=== PATIENT | male | born 1990 | race Caucasian/White ===

== ENCOUNTER 2017-09-07 15:48 | Inpatient (IN) | payer SELFPAY ==
[2017-09-07] MEDS: REMOVE OLD PATCH T-DERMAL (18:23)
[2017-09-07] MEDS ORDERED: diphenhydrAMINE HCL 50 MG/ML VIAL IM (18:30)
[2017-09-07] MEDS ORDERED: diphenhydrAMINE HCL 50 MG CAP - HS PRN PO (18:30)
[2017-09-07] MEDS ORDERED: MAGNESIUM HYDROXIDE SUSP 30 ML CUP PO (18:30)
[2017-09-07] MEDS ORDERED: diphenhydrAMINE HCL 50 MG CAP PO (18:30)
[2017-09-07] MEDS: NEOMYCIN/POLYMYXIN/BACITRACIN OINT 15 GM TUBE TOPICAL (20:24)
[2017-09-07] MEDS: ACETAMINOPHEN 325 MG TAB PO (22:42)
[2017-09-07] MEDS: hydrOXYzine HCL 50 MG TAB PO (22:42)
[2017-09-08] MEDS: NICOTINE 21 MG/24 HR PATCH T-DERMAL (09:00)
[2017-09-08] MEDS: REMOVE OLD PATCH T-DERMAL (09:00)
[2017-09-08] MEDS: ACETAMINOPHEN 325 MG TAB PO (09:34)
[2017-09-08] MEDS: hydrOXYzine HCL 50 MG TAB PO (09:34)
[2017-09-08 10:09] LABS: AUTOMATED NEUTROPHIL # 5.4 TH/MM3 (1.8-7.7); BASOPHIL # 0.1 TH/MM3 (0-0.2); BASOPHIL % 1.1 % (0.0-2.0); EOSINOPHIL # 0.3 TH/MM3 (0-0.4); HEMATOCRIT 42.8 % (39.0-51.0); HEMO FLAGS DIFF FINAL; HEMOGLOBIN 14.1 GM/DL (13.0-17.0); LYMPH % 16.4 % (9.0-44.0); LYMPHOCYTE # 1.3 TH/MM3 (1.0-4.8); MEAN CELL VOLUME 90.8 FL (80.0-100.0); MEAN PLATELET VOLUME 6.8 FL (7.0-11.0); MONO % 9.8 % (0.0-8.0); MONOCYTE # 0.8 TH/MM3 (0-0.9); NEUT % 68.7 % (16.0-70.0); PLATELET COUNT 363 TH/MM3 (150-450); RED BLOOD COUNT 4.71 MIL/MM3 (4.50-5.90); RED CELL DISTRIBUTION WIDTH 14.4 % (11.6-17.2); WHITE BLOOD COUNT 7.8 TH/MM3 (4.0-11.0)
[2017-09-08 10:31] LABS: ALBUMIN 4.2 GM/DL (3.4-5.0); ANION GAP 10 MEQ/L (5-15); AST (GOT) 119 U/L (15-37); BLOOD UREA NITROGEN 16 MG/DL (7-18); CALCIUM 9.5 MG/DL (8.5-10.1); CHLORIDE 101 MEQ/L (98-107); CREATININE 0.86 MG/DL (0.60-1.30); GLOMERULAR FILTRATION RATE 107 ML/MIN (>89); GLUCOSE,RANDOM 93 MG/DL (74-106); POTASSIUM 3.9 MEQ/L (3.5-5.1); SODIUM (NA) 140 MEQ/L (136-145)
[2017-09-08 10:32] LABS: ALT (GPT) 117 U/L (12-78); CHOLESTEROL 230 MG/DL (120-200); TRIGLYCERIDES 219 MG/DL (42-150)
[2017-09-08 10:42] LABS: ALKALINE PHOSPHATASE 122 U/L (45-117); CHOLESTEROL/ HDL RATIO 3.06 RATIO; CREATINE KINASE 109 U/L (39-308); LDL CHOLESTEROL 111 MG/DL (0-99); TOTAL BILIRUBIN ADULT 0.2 MG/DL (0.2-1.0); TOTAL PROTEIN 8.7 GM/DL (6.4-8.2)
[2017-09-08] MEDS: NEOMYCIN/POLYMYXIN/BACITRACIN OINT 15 GM TUBE TOPICAL ×2 (12:16→21:00)
[2017-09-08 12:19] LABS: HEMOGLOBIN A1C 4.9 % (4.3-6.0); HEMOGLOBIN A1a 0.6 %; HEMOGLOBIN A1b 1.7 %; HEMOGLOBIN Ao 86.1 %; HEMOGLOBIN P3 3.9 %
[2017-09-08] MEDS: OXcarbazepine 600 MG TAB PO ×3 (16:48→23:29)
[2017-09-08] MEDS: GABAPENTIN 300 MG CAP PO (16:48)
[2017-09-08] MEDS: QUEtiapine FUMARATE 200 MG TAB PO ×2 (16:50→20:32)
[2017-09-09] MEDS: OXcarbazepine 600 MG TAB PO ×4 (06:16→23:38)
[2017-09-09] MEDS: QUEtiapine FUMARATE 200 MG TAB PO ×3 (06:16→20:35)
[2017-09-09] MEDS: NICOTINE 21 MG/24 HR PATCH T-DERMAL (09:00)
[2017-09-09] MEDS: REMOVE OLD PATCH T-DERMAL (09:00)
[2017-09-09] MEDS: NEOMYCIN/POLYMYXIN/BACITRACIN OINT 15 GM TUBE TOPICAL ×2 (09:00→21:00)
[2017-09-09] MEDS: GABAPENTIN 300 MG CAP PO ×4 (09:45→17:34)
[2017-09-09 13:19] LABS: ALBUMIN 4.1 GM/DL (3.4-5.0); ALT (GPT) 131 U/L (12-78); ANION GAP 6 MEQ/L (5-15); AST (GOT) 92 U/L (15-37); BICARBONATE 28.8 MEQ/L (21.0-32.0); BLOOD UREA NITROGEN 21 MG/DL (7-18); CALCIUM 9.1 MG/DL (8.5-10.1); CHLORIDE 104 MEQ/L (98-107); CREATININE 1.01 MG/DL (0.60-1.30); GLOMERULAR FILTRATION RATE 89 ML/MIN (>89); GLUCOSE,RANDOM 121 MG/DL (74-106); POTASSIUM 3.9 MEQ/L (3.5-5.1); SODIUM (NA) 139 MEQ/L (136-145)
[2017-09-09 13:21] LABS: ALKALINE PHOSPHATASE 118 U/L (45-117); TOTAL BILIRUBIN ADULT 0.3 MG/DL (0.2-1.0); TOTAL PROTEIN 8.6 GM/DL (6.4-8.2)
[2017-09-09] MEDS: ALUMINUM/MAGNESIUM/SIMETH 30 ML CUP PO (21:05)
[2017-09-10] MEDS: QUEtiapine FUMARATE 200 MG TAB PO ×3 (06:07→21:24)
[2017-09-10] MEDS: OXcarbazepine 600 MG TAB PO ×3 (06:07→18:00)
[2017-09-10] MEDS: REMOVE OLD PATCH T-DERMAL (09:00)
[2017-09-10] MEDS: NICOTINE 21 MG/24 HR PATCH T-DERMAL (09:00)
[2017-09-10] MEDS: GABAPENTIN 300 MG CAP PO ×3 (09:15→18:00)
[2017-09-10] MEDS: NEOMYCIN/POLYMYXIN/BACITRACIN OINT 15 GM TUBE TOPICAL ×2 (09:16→21:25)
[2017-09-10] MEDS ORDERED: FLUMAZENIL 0.5 MG/5 ML VIAL IV PUSH (14:30)
[2017-09-10] MEDS ORDERED: LORazepam 1 MG TAB PO (14:30)
[2017-09-10] MEDS ORDERED: LORazepam 2 MG TAB PO (14:30)
[2017-09-10] MEDS ORDERED: LORazepam 2 MG/ML VIAL IV PUSH ×4 (14:30)
[2017-09-10] MEDS: PANTOPRAZOLE SOD 40 MG DELAYED RELEASE TAB PO (16:00)
[2017-09-11] MEDS: OXcarbazepine 600 MG TAB PO ×4 (00:45→17:32)
[2017-09-11] MEDS: QUEtiapine FUMARATE 200 MG TAB PO ×3 (06:26→20:22)
[2017-09-11] MEDS: REMOVE OLD PATCH T-DERMAL (09:00)
[2017-09-11] MEDS: NICOTINE 21 MG/24 HR PATCH T-DERMAL (09:00)
[2017-09-11] MEDS: PANTOPRAZOLE SOD 40 MG DELAYED RELEASE TAB PO (09:10)
[2017-09-11] MEDS: GABAPENTIN 300 MG CAP PO ×3 (09:11→17:33)
[2017-09-11] MEDS: NEOMYCIN/POLYMYXIN/BACITRACIN OINT 15 GM TUBE TOPICAL ×2 (09:13→20:22)
[2017-09-11] MEDS: hydrOXYzine HCL 50 MG TAB PO (12:17)
[2017-09-11] MEDS: IBUPROFEN 400 MG TAB PO ×2 (13:17→17:33)
[2017-09-12] MEDS: OXcarbazepine 600 MG TAB PO ×3 (06:00→12:00)
[2017-09-12] MEDS: QUEtiapine FUMARATE 200 MG TAB PO (06:37)
[2017-09-12] MEDS: PANTOPRAZOLE SOD 40 MG DELAYED RELEASE TAB PO (08:21)
[2017-09-12] MEDS: GABAPENTIN 300 MG CAP PO ×2 (08:21→13:00)
[2017-09-12] MEDS: REMOVE OLD PATCH T-DERMAL (09:00)
[2017-09-12] MEDS: NEOMYCIN/POLYMYXIN/BACITRACIN OINT 15 GM TUBE TOPICAL (09:00)
[2017-09-12] MEDS: NICOTINE 21 MG/24 HR PATCH T-DERMAL (09:00)
[2017-09-12] MEDS: hydrOXYzine HCL 50 MG TAB PO (11:26)
[2017-09-12] MEDS: IBUPROFEN 400 MG TAB PO (11:26)
[2017-09-12 12:19] LABS: ALBUMIN 3.7 GM/DL (3.4-5.0); ALT (GPT) 67 U/L (12-78); AST (GOT) 20 U/L (15-37); DIRECT BILIRUBIN ADULT 0.1 MG/DL (0.0-0.2)
[2017-09-12 12:22] LABS: ALKALINE PHOSPHATASE 128 U/L (45-117); INDIRECT BILIRUBIN 0.2 MG/DL (0.0-0.8); TOTAL BILIRUBIN ADULT 0.3 MG/DL (0.2-1.0); TOTAL PROTEIN 7.6 GM/DL (6.4-8.2)
== END 2017-09-12 16:55 | disposition home or self-care (01) | DRG 885 ==
LOC: H260 09-08 04:37 → H270 15:48
DX: F29 Unspecified psychosis not due to a substance or known physiological condition (principal); F25.0 Schizoaffective disorder, bipolar type; F14.10 Cocaine abuse, uncomplicated; B19.20 Unspecified viral hepatitis C without hepatic coma; S61.511A Laceration without foreign body of right wrist, initial encounter; X78.9XXA Intentional self-harm by unspecified sharp object, initial encounter; E78.5 Hyperlipidemia, unspecified; F10.10 Alcohol abuse, uncomplicated; F41.9 Anxiety disorder, unspecified; K21.9 Gastro-esophageal reflux disease without esophagitis; S82.92XD Unspecified fracture of left lower leg, subsequent encounter for closed fracture with routine healing; Z91.5 Personal history of self-harm; Z59.0 Homelessness
CPT/HCPCS: 80053; 80061; 80076; 82550; 83036; 84443; 85025